=== PATIENT | male | born 1965 | race Caucasian/White ===

== ENCOUNTER → 2016-04-07 | Outpatient (CLI) | payer OTHER ==
[~2016-04-07] MED LIST: /BACL20TA PO; ALBU17IN2 INH; BACL10TA PO; BACL10TA2 PO; HYDR12.55 PO; LISI5TAB PO; NAPR500T PO; NICO21PAT TD; NORV5TAB PO; OMEP20CA3 PO; OMEP40CA2 PO; PERC5TAB6 PO; SIMV40TA2 PO; SULF-216 PO; TERB250T64 PO; TYLE325T5 PO; ULTR50TA PO; VIAG100T PO
[2016-04-07 15:48] LABS: MEAN CORPUSCULAR HEMOGLOBIN 28.1 pg (27.0-33.0); MEAN CORPUSCULAR VOLUME 87.9 fl (80.0-96.0); RED CELL DISTRIBUTION WIDTH 13.9 % (11.5-14.5); WHITE BLOOD COUNT 6.4 K/mm3 (4.0-10.0)
[2016-04-07 16:02] LABS: ALBUMIN/GLOBULIN RATIO 1.05 (1.00-1.93); ALKALINE PHOSPHATASE 100 U/L (45-117); ALT/SGPT 61 U/L (12-78); ANION GAP 9 MEQ/L (8-16); AST/SGOT 23 U/L (15-37); BILIRUBIN,TOTAL 0.4 MG/DL (0.2-1.0); BLOOD UREA NITROGEN 13 MG/DL (7-18); CALCIUM LEVEL 9.5 MG/DL (8.5-10.1); CARBON DIOXIDE LEVEL 27 MEQ/L (21-32); CHLORIDE LEVEL 103 MEQ/L (98-107); CREATININE FOR GFR 1.13 MG/DL (0.70-1.30); GLOMERULAR FILTRATION RATE > 60.0 (>60); GLUCOSE, FASTING 92 MG/DL (70-105); POTASSIUM SERUM 4.2 MEQ/L (3.5-5.1); SODIUM LEVEL 139 MEQ/L (136-145); TOTAL PROTEIN 7.8 GM/DL (6.4-8.2)
[2016-04-08 09:48] LABS: CONTROL LINE INT CTR LINE PRESENT; HIV SCRN NEGATIVE (NEGATIVE); HIV SCRN1 NEGATIVE (NEGATIVE)
== END ==
LOC: M LAB 14:18
PROVIDERS: ATTEND Family Medicine
DX: F11.20 Opioid dependence, uncomplicated (principal)

== ENCOUNTER → 2016-06-23 | Outpatient (CLI) | payer OTHER ==
--- NOTE | 2016-06-23 17:02 | REP ---
LEFT WRIST, FOUR VIEWS: HISTORY: Pain. There is no acute fracture or dislocation. The joint spaces are normal in appearance. IMPRESSION: There is no acute fracture or dislocation. Signed by Jessee Parnell MD 06/23/2016 05:05 P
== END ==
LOC: M WUC 15:55
PROVIDERS: ATTEND Physician Assistant
DX: M25.532 Pain in left wrist (principal)

== ENCOUNTER → 2016-11-11 | Outpatient (CLI) | payer OTHER ==
[~2016-11-11] MED LIST changes: +PERC5TAB12 PO; -PERC5TAB6 PO
[2016-11-11 14:02] LABS: MEAN CORPUSCULAR HEMOGLOBIN 29.3 pg (27.0-33.0); MEAN CORPUSCULAR HGB CONC 33.9 g/dl (32.0-36.5); MEAN CORPUSCULAR VOLUME 86.6 fl (80.0-96.0); RED CELL DISTRIBUTION WIDTH 14.5 % (11.5-14.5); WHITE BLOOD COUNT 5.9 K/mm3 (4.0-10.0)
[2016-11-11 14:13] LABS: ALBUMIN 3.3 GM/DL (3.2-5.2); ALBUMIN/GLOBULIN RATIO 0.94 (1.00-1.93); ALKALINE PHOSPHATASE 89 U/L (45-117); ALT/SGPT 55 U/L (12-78); ANION GAP 12 MEQ/L (8-16); AST/SGOT 29 U/L (15-37); BILIRUBIN,TOTAL 0.3 MG/DL (0.2-1.0); BLOOD UREA NITROGEN 17 MG/DL (7-18); CALCIUM LEVEL 8.7 MG/DL (8.5-10.1); CARBON DIOXIDE LEVEL 24 MEQ/L (21-32); CHLORIDE LEVEL 107 MEQ/L (98-107); GLOMERULAR FILTRATION RATE > 60.0 (>56); GLUCOSE, FASTING 119 MG/DL (70-105); POTASSIUM SERUM 3.6 MEQ/L (3.5-5.1); SODIUM LEVEL 143 MEQ/L (136-145); TOTAL PROTEIN 6.8 GM/DL (6.4-8.2)
--- NOTE | 2016-11-11 18:28 | ECGEPIP ---
Stationary ECG Study [facility] Test Date: 2016-11-11 Pat Name: MARIO POLLACK Department: Room: - Gender: M Dog Warden: : 1965 Requested By: Shayne Umanzor Order Number: [id number] Reading MD: Edin Hoskins Measurements Intervals Proctor Rate: 60 P: 21 W[place]: 145 QRS: 40 QRSD: 88 T: 58 QT: 423 QTc: 424 Interpretive Statements Normal sinus rhythm Some delayed anterior R-wave progression Nonspecific T-wave abnormality No significant change since 04/27/2014 Electronically Signed On 11-11-2016 18:27:57 EDT by Edin Hoskins
== END ==
LOC: M LAB 12:23
PROVIDERS: ATTEND Family Medicine
DX: Z13.9 Encounter for screening, unspecified (principal); F11.20 Opioid dependence, uncomplicated

== ENCOUNTER 2017-04-12 04:36 | Emergency (ER) | payer OTHER ==
[2017-04-12] MEDS ORDERED: AMMONIA AROMATIC INHALANT (FLOOR STOCK) As Ordered (04:44)
[2017-04-12] MEDS: NALOXONE INJ 2 MG/2 ML SYRINGE (J2310) IM (05:13)
== END 2017-04-12 07:05 | disposition home or self-care (01) ==
LOC: M ED 04:36
DX: T40.2X1A Poisoning by other opioids, accidental (unintentional), initial encounter (principal); X58.XXXA Exposure to other specified factors, initial encounter; Y92.018 Other place in single-family (private) house as the place of occurrence of the external cause; F11.10 Opioid abuse, uncomplicated; Z79.899 Other long term (current) drug therapy; Z88.8 Allergy status to other drugs, medicaments and biological substances
CPT/HCPCS: J2310

== ENCOUNTER → 2018-05-19 | Outpatient (REF) | payer OTHER ==
[2018-05-19 13:52] LABS: ALBUMIN 3.6 GM/DL (3.2-5.2); ALT/SGPT 85 U/L (12-78); BILIRUBIN,TOTAL 0.2 MG/DL (0.2-1.0); BLOOD UREA NITROGEN 19 MG/DL (7-18); CALCIUM LEVEL 9.1 MG/DL (8.5-10.1); CARBON DIOXIDE LEVEL 22 MEQ/L (21-32); CHLORIDE LEVEL 108 MEQ/L (98-107); GLOMERULAR FILTRATION RATE > 60.0 (>56); GLUCOSE, FASTING 120 MG/DL (70-100); POTASSIUM SERUM 3.7 MEQ/L (3.5-5.1); SODIUM LEVEL 141 MEQ/L (136-145); TOTAL PROTEIN 7.5 GM/DL (6.4-8.2)
== END ==
LOC: M LAB REF 12:34
PROVIDERS: ATTEND Nurse Practitioner Primary Care
DX: I10 Essential (primary) hypertension (principal)

== ENCOUNTER 2019-03-09 20:55 | Emergency (ER) | payer MEDICAID ==
[~2019-03-09] VITALS: Ht 177.8 cm; Wt 83.3 kg
[~2019-03-09 20:55] MED LIST changes: -/BACL20TA PO; +BACL1TAB9 PO; +NICO21DI3 TD; -NICO21PAT TD; +OMEP-172 PO; -OMEP20CA3 PO; -OMEP40CA2 PO; +OMEP40CA97 PO
[2019-03-09 22:25] LABS: BASO % 0.5 % (0.0-1.0); EOS % 0.4 % (0.0-3.0); HEMATOCRIT 44.2 % (42.0-52.0); HEMOGLOBIN 13.2 g/dl (13.5-17.5); LYMPH # 1.7 10^3/uL (1.5-5.0); LYMPH % 19.6 % (24.0-44.0); MEAN CORPUSCULAR HGB CONC 29.9 g/dl (32.0-36.5); MONO # 0.6 10^3/uL (0.0-0.8); MONO % 6.8 % (0.0-5.0); NEUTROPHILS # 6.2 10^3/uL (1.5-8.5); NEUTROPHILS % 72.3 % (36.0-66.0); PLATELET COUNT, AUTOMATED 180 10^3/uL (150-450); RED BLOOD COUNT 5.08 10^6/uL (4.30-6.10); WHITE BLOOD COUNT 8.5 10^3/uL (4.0-10.0)
[2019-03-09 22:51] LABS: ACETAMINOPHEN LEVEL < 2.0 UG/ML (10.0-30.0); ETHYL ALCOHOL (ETHANOL) < 0.003 % (0.000-0.010); SALICYLATE LEVEL 2.6 MG/DL (5.0-30.0)
[2019-03-09 22:57] LABS: ALBUMIN 3.9 GM/DL (3.2-5.2); ALT/SGPT 47 U/L (12-78); BILIRUBIN,DIRECT 0.1 MG/DL (0.0-0.2); BILIRUBIN,TOTAL 0.3 MG/DL (0.2-1.0); BLOOD UREA NITROGEN 20 MG/DL (7-18); CALCIUM LEVEL 9.1 MG/DL (8.5-10.1); CARBON DIOXIDE LEVEL 27 MEQ/L (21-32); CHLORIDE LEVEL 106 MEQ/L (98-107); CK-MB VALUE MASS 2.9 NG/ML (<3.6); CPK CREATINE PHOSPHOKINASE 137 U/L (39-308); CREATININE FOR GFR 1.02 MG/DL (0.70-1.30); GLOMERULAR FILTRATION RATE > 60.0 (>56); GLUCOSE, FASTING 81 MG/DL (70-100); MB/CK RELATIVE INDEX 2.12 (< OR =4); POTASSIUM SERUM 3.7 MEQ/L (3.5-5.1); SODIUM LEVEL 140 MEQ/L (136-145); TOTAL PROTEIN 8.6 GM/DL (6.4-8.2); TROPONIN I < 0.02 NG/ML (< 0.10)
[2019-03-09 23:59] LABS: AMPHETAMINES LEVEL URINE NEGATIVE (NEGATIVE); BARBITURATES URINE NEGATIVE (NEGATIVE); BENZODIAZEPINES URINE NEGATIVE (NEGATIVE); CANNABINOIDS URINE NEGATIVE (NEGATIVE); COCAINE METABOLITE URINE NEGATIVE (NEGATIVE); METHADONE URINE POSITIVE (NEGATIVE); OPIATES URINE NEGATIVE (NEGATIVE); PHENCYCLIDINE URINE NEGATIVE (NEGATIVE)
[2019-03-10 02:15] VITALS: BP_DIAS 74
[2019-03-10 04:03] VITALS: BP_SYST 164
--- NOTE | 2019-03-10 08:17 | REP ---
CT brain: 03/09/2019. Indication: Acute mental status change. Stroke. Comparison: 02/08/2016. Technique: Unenhanced axial CT images of the brain were obtained from skull base to vertex with coronal reconstructions provided. Findings: There is no acute intracranial hemorrhage, acute cortical infarction, mass effect, hydrocephalus or acute calvarial fracture. Mild diffuse volume loss is present. 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 Impression: No acute intracranial process. Electronically Signed by Evelio Joshi DO 03/10/2019 08:09 A
--- NOTE | 2019-03-10 15:05 | ECGEPIP ---
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
== END 2019-03-10 04:05 | disposition home or self-care (01) ==
LOC: M ED 20:55
DX: F11.10 Opioid abuse, uncomplicated (principal); R00.1 Bradycardia, unspecified; Z79.899 Other long term (current) drug therapy; Z88.6 Allergy status to analgesic agent; Z88.8 Allergy status to other drugs, medicaments and biological substances
CPT/HCPCS: 36415; 51701; 70450; 80048; 80076; 80307; 82550; 82553; 84443; 85025; 93005; 93041; 94760; 99285; G0480

== ENCOUNTER 2019-03-16 08:55 | Emergency (ER) | payer MEDICAID ==
[~2019-03-16] VITALS: Ht 180.3 cm; Wt 89.5 kg
== END 2019-03-16 09:25 | disposition left against medical advice (07) ==
LOC: EDBD 08:55 → M ED 08:55
DX: F19.10 Other psychoactive substance abuse, uncomplicated (principal); F11.10 Opioid abuse, uncomplicated; F17.200 Nicotine dependence, unspecified, uncomplicated; K21.9 Gastro-esophageal reflux disease without esophagitis; Z86.19 Personal history of other infectious and parasitic diseases; Z79.899 Other long term (current) drug therapy; Z88.6 Allergy status to analgesic agent; Z88.8 Allergy status to other drugs, medicaments and biological substances

== ENCOUNTER 2019-04-21 21:24 | Inpatient (IN) | payer MEDICAID, OTHER ==
[~2019-04-21] VITALS: Ht 180.3 cm; Wt 88.4 kg
[~2019-04-21 21:24] MED LIST changes: -OMEP-172 PO; +OMEP1CAP73 PO
[2019-04-21] MEDS ORDERED: CETI10CH PO (22:30)
[2019-04-21] MEDS ORDERED: PANT40TA3 PO (22:30)
[2019-04-21] MEDS ORDERED: PROZ20CA11 PO (22:30)
[2019-04-21] MEDS ORDERED: ZYPR15TA PO (22:30)
[2019-04-21] MEDS ORDERED: GABA-843 PO (22:30)
[2019-04-21 22:50] LABS: BASO % 0.2 % (0.0-1.0); HEMATOCRIT 45.8 % (42.0-52.0); HEMOGLOBIN 14.6 g/dl (13.5-17.5); LYMPH # 0.9 10^3/uL (1.5-5.0); LYMPH % 6.9 % (24.0-44.0); MEAN CORPUSCULAR HEMOGLOBIN 26.5 pg (27.0-33.0); MEAN CORPUSCULAR HGB CONC 31.9 g/dl (32.0-36.5); MEAN CORPUSCULAR VOLUME 83.3 fl (80.0-96.0); MONO # 0.4 10^3/uL (0.0-0.8); NEUTROPHILS % 89.2 % (36.0-66.0); PLATELET COUNT, AUTOMATED 229 10^3/uL (150-450); WHITE BLOOD COUNT 12.4 10^3/uL (4.0-10.0)
[2019-04-21] MEDS ORDERED: PROMETHAZINE INJ 25 MG/ML VIAL (J2550) IV ONE (23:15)
[2019-04-21] MEDS ORDERED: ISOVUE-370 76% 100ML VIAL (Q9967) As Ordered ONE (23:17)
[2019-04-21 23:23] LABS: BILIRUBIN,DIRECT 0.1 MG/DL (0.0-0.2); BILIRUBIN,TOTAL 0.3 MG/DL (0.2-1.0); TOTAL PROTEIN 8.4 GM/DL (6.4-8.2)
--- NOTE | 2019-04-22 00:08 | REPVR ---
PROCEDURE INFORMATION: Exam: CT Abdomen And Pelvis With Contrast Exam date and time: 04/21/2019 11:08 PM Age: 53 years old Clinical indication: Abdominal pain; Generalized; Additional info: Abd pain, HX of obstruction TECHNIQUE: Imaging protocol: Computed tomography of the abdomen and pelvis with intravenous contrast. Radiation optimization: All CT scans at this facility use at least one of these dose optimization techniques: automated exposure control; mA and/or kV adjustment per patient size (includes targeted exams where dose is matched to clinical indication); or iterative reconstruction. Contrast material: ISO; Contrast volume: 100 ml; Contrast route: AC; COMPARISON: CT ABD PELVIS W/O FOL BY WIT 06/19/2014 4:54 PM FINDINGS: Lungs: Minimal dependent atelectasis. Liver: The liver attenuation is 64 Hounsfield units and the spleen is 113 Hounsfield units. Gallbladder and bile ducts: There is a gallstone in the gallbladder measuring 18 mm. Pancreas: Normal. No ductal dilation. Spleen: Normal. No splenomegaly. Adrenals: Normal. No mass. Kidneys and ureters: There is a left renal cyst measuring up to 10 mm. Stomach and bowel: See Soft Tissues Finding. Appendix: No evidence of appendicitis. Intraperitoneal space: Unremarkable. No free air. No significant fluid collection. Vasculature: There is mild calcification of the abdominal aorta with extension into the iliac arteries. Lymph nodes: Unremarkable. No enlarged lymph nodes. Bladder: Unremarkable as visualized. Reproductive: Unremarkable as visualized. Bones/joints: Unremarkable. No acute fracture. Soft tissues: Small fat filled umbilical hernia or right periumbilical hernia. There is an adjacent epigastric fat filled ventral wall hernia protruding toward the left and small epigastric fat filled hernias which may be incisional. [id number] small-bowel distention which extends into a right pelvic ventral wall hernia. There are suture lines associated with the distal dilated small bowel which is within the hernia sac. There is distention of the proximal small bowel. There is an apparent point of transition upon re-entry from the hernia although the apparent narrowing is not severe and findings may reflect enteritis involving the distal small bowel or possibly anastomotic stricture which happens to be within the hernia sac. The point of transition is a few cm from the apparent ileocolic anastomosis in the right pelvis. IMPRESSION: 1. Right pelvic ventral wall hernia containing small bowel segments. Some of this has suture lines suggesting an anastomosis. 2. Small bowel obstruction with a point of transition upon re-entry of the small bowel back into the abdomen from the right pelvic ventral wall hernia which is a few cm from an apparent ileal colic anastomosis. Although the transition is at re-entry, findings may reflect anastomotic stricture or enteritis of the distal small bowel. Obstruction related to incarcerated hernia is not excluded. 3. Small fat filled ventral wall hernias which may be incisional. 4. Fatty infiltration of the liver. 5. Cholelithiasis. COMMENT: Consistent with the [place] [employer]'s Incidental Findings Committee white paper (J Am Tamie Radiol 2018): Any incidental cystic renal lesion classified in this report as too small to characterize or simple appearing is likely a benign cyst. No follow-up imaging is recommended for these lesions per consensus recommendations based on imaging criteria. Electronically signed by: Terell Burrell On 04/22/2019 00:07:55 AM
[2019-04-22] MEDS ORDERED: CYCL10TA PO (00:57)
[2019-04-22] MEDS: D5W/0.9% SODIUM CHLORIDE 1,000 ML IV SCH ×2 (01:15→20:32)
[2019-04-22] MEDS ORDERED: CETIRIZINE (ZyrTEC) 10 MG TAB PO PRN (01:15)
[2019-04-22] MEDS ORDERED: PROMETHAZINE INJ 25 MG/ML VIAL (J2550) IV PRN (02:00)
[2019-04-22 02:17] VITALS: BP 170/98
--- NOTE | 2019-04-22 02:28 | HPEPDOC ---
General Date of Admission Apr 22, 2019 at 01:08 Date of Service: Apr 22, 2019 Other Providers Shayne Umanzor Chief Complaint The patient is a 53-year-old male admitted with a reason for visit of Bowel Obstruction. History of Present Illness John is a 53-year-old male with a history of a small bowel obstruction status post exploratory laparotomy with lysis of adhesions/small bowel resection/primary anastomoses done by Dr. Bruno in 2014. He presented to the emergency department this evening complaining of abdominal pain that had started at 8 AM this morning. The only thing that he has eaten all day has been toast at breakfast. The abdominal pain is in the lower quadrants, and mostly on the right of the low abdomen. He describes it as an aching intermittent pain that has progressed over the course of the day. He has had nausea and 3-4 episodes of emesis (which have been small amounts of gastric fluid). He denies diarrhea, but states that he does have chronic constipation. He has had 6 to 7 black, firm stools today. Normally he has one bowel movement daily. He does not believe that he has passed any gas since yesterday. He denies any bright red blood per rectum (he does have a history of hemorrhoids). He denies any difficulty with urination He denies any fevers or chills. He also does have a history of hepatitis C, which has not been treated. Home Medications Scheduled Amlodipine Besylate (Norvasc) 5 Mg Tab, 10 MG PO DAILY, (Reported) Cyclobenzaprine HCl (Cyclobenzaprine HCl) 10 Mg Tablet, 10 PO TID, (Reported) PATIENT UNSURE OF DOSE, UNABLE TO VERIFY UNTIL PHARMACY OPENS Fluoxetine HCl (Prozac) 20 Mg Capsule, 60 MG PO DAILY, (Reported) Gabapentin (Gabapentin) 300 Mg Capsule, 300 MG PO DAILY, (Reported) Olanzapine (Zyprexa) 15 Mg Tablet, 30 MG PO QPM, (Reported) Omeprazole (Omeprazole) 20 Mg Cap, 20 MG PO DAILY, (Reported) Pantoprazole Sodium (Pantoprazole Sodium) 40 Mg Tablet.dr, 40 MG PO DAILY, (Reported) Scheduled PRN Cetirizine HCl (Cetirizine HCl) 10 Mg Tab.chew, 10 MG PO DAILY PRN for allergy symptoms, (Reported) Allergies Coded Allergies: amitriptyline (Verified Allergy, Unknown, anaphylaxis, 03/16/19) NSAIDS (Non-Steroidal Anti-Inflamma (Verified Adverse Reaction, Unknown, kidney dysfuntion, 03/16/19) Past Medical History Medical History Schizophrenia Anxiety and depression Hypertension Heroin/opioid abuse GERD Chronic low back pain Hepatitis C (untreated) Hemorrhoids History small bowel obstruction Surgical History Spine surgery with vertebral and disc replacement (1986) Melanoma excision from back (unknown) done at [place] Exploratory laparotomy with lysis of adhesions, small bowel resection, and primary anastomosis (2014 Dr. Bruno) Family History None Social History Currently incarcerated at [facility] (35 days). History of heroin/opioid abuse, remote history of bath salt use (clean for 35 days). Smokes 1.5 packs of cigarettes per day, 57-ysin-mido smoking history. Denies alcohol use. Denies recent travel. Was previously in the [employer], served in [employer], was never deployed overseas, has been all over the [place]. No pets. A-FIB/CHADSVASC A-FIB History Current/History of A-Fib/PAF?: No Review of Systems Other systems Constitutional: Denies weight loss, waking, fevers, chills, or night sweats Eyes: Denies visual changes, double vision, blurry vision, floaters, or feeling like a curtain pulled down. Ear nose throat: Denies runny nose, epistaxis, sinus pain, tinnitus, sore throat, or diet aphasia Cardiovascular: Denies chest pain, shortness of breath, paroxysmal nocturnal dyspnea, orthopnea, edema, or pain palpitations. Respiratory: Denies cough, sputum production, wheezes, hemoptysis, or shortness of breath Gastrointestinal: Endorses abdominal pain as described above, with chronic constipation, black stools, nausea and 3 episodes of vomiting (small amounts of gastric acid). Endorses obstipation since this morning. Denies difficulty swallowing, loss of appetite, diarrhea, hematemesis, hematochezia, or tenesmus. Musculoskeletal: Denies joint swelling, decreased range of motion, crepitus, or no arthritis Integumentary: Denies pruritus, rashes, or lesions Neuro: Denies any changes to sight/smell/hearing/taste seizures, faint, headaches, paresthesias, anesthesias Psychiatric: Positive for history of schizophrenia as well as depression and anxiety. Denies paranoia, anhedonia, or episodes of flavio Endocrine: Denies diarrhea, increased appetite, tremor, palpitations, constipation, dry skin, polydipsia, polyuria, polyphagia Hematologic: Denies any anemia, purpura, or petechiae Lymphatic: Denies any new lumps or bumps anywhere Physical Examination Other physical findings General: Middle-aged male who appears a little than stated age, in no acute distress, lying in the stretcher in handcuffs. He is accompanied by 2 correctional officers. HEENT: Atraumatic, normocephalic. Mucous membranes are moist. Patient is edentulous. Posterior pharynx is free of erythema or exudate. Mallampati 3. Extraocular eye movements are intact and pupils are equal round and reactive to light Neck: Supple, no masses, no JVD Lungs: Clear to auscultation bilaterally; no wheezes, rhonchi, or rales Heart: Regular rate and rhythm; no murmurs, gallops, or rubs Abdomen: Normoactive bowel sounds, with some tympany to percussion of the left abdomen. No guarding or rigidity is noted. Peristalsis is appreciated on palpa tion of the lower abdomen, especially in the right lower quadrant. There is discomfort/tenderness with palpation of the right and left lower quadrants. Back: No CVA tenderness Extremities: No clubbing, cyanosis, or bilateral lower extremity edema. Integumentary: Fungal infection of the nails of the first 2 digits of the left hand. Multiple tattoos noted. He does have some minor skin irritation from his handcuffs. Neuro: Cranial nerves II through XII grossly intact. Sensation intact throughout. Muscle strength 5 out of 5 bilaterally Psychiatric: Affect is full and mood is appropriate Vital Signs Vital Signs Date Time Temp Pulse Resp B/P (MAP) Pulse Ox O2 Delivery O2 Flow Rate FiO2 04/22/19 01:40 167/93 (117) 04/21/19 21:25 97.6 102 16 95 Room Air Laboratory Data Labs 24H Laboratory Tests 2 04/21/19 22:44: Immature Granulocyte % (Auto) 0.7, Neutrophils (%) (Auto) 89.2H, Lymphocytes (%) (Auto) 6.9L, Monocytes (%) (Auto) 3.0, Eosinophils (%) (Auto) 0.0, Basophils (%) (Auto) 0.2, Neutrophils # (Auto) 11.0H, Lymphocytes # (Auto) 0.9L, Monocytes # (Auto) 0.4, Eosinophils # (Auto) 0.0, Basophils # (Auto) 0.0, Nucleated Red Blood Cells % (auto) 0.0, Total Bilirubin 0.3, Direct Bilirubin 0.1, Aspartate Amino Transf (AST/SGOT) 25, Alanine Aminotransferase (ALT/SGPT) 56, Alkaline Phosphatase 136H, Total Protein 8.4H, Albumin 4.0, Albumin/Globulin Ratio 0.91L, Lipase 97 04/21/19 22:45: POC Glucose (Misc Panel) 220H, POC Sodium (Misc Panel) 138, POC Potassium (Misc Panel) 4.0, POC Chloride (Misc Panel) 104, POC Total CO2 (Misc Panel) 22.0L, POC Blood Urea Nitrogen (Misc Panel 11, POC Ionized Calcium (Misc Panel) 4.5, POC Creatinine (Misc Panel) 0.8, POC Hematocrit (Misc Panel) 47.0 CBC/BMP Laboratory Tests 04/21/19 22:44 Assessment/Plan Assessment: 53-year-old incarcerated male with history of small bowel obstruction status post exploratory laparotomy with lysis of adhesions/small bowel resection/primary anastomoses done in 2014 presenting with a day-long history of abdominal pain. Small bowel obstruction with point of transition upon reentry of the small bowel back into the abdomen from the right pelvic ventral wall hernia noted on CT of the abdomen and pelvis. Plan: 1. Small bowel obstruction. Will keep nothing by mouth except for meds, with normal saline at [address] Sims from surgery consulted, appreciate his help. Will add ciprofloxacin and metronidazole for bacterial translocation. Phenergan for nausea. 2. Hypertension. Continue with amlodipine 3. History of heroin/opioid abuse. Avoid narcotic medications if possible 4. GERD. Continue with omeprazole 5. Schizophrenia. Continue with home Zyprexa 6. Depression and anxiety. Continue with Prozac 7. Allergies. Continue with cetirizine 8. Chronic back pain. Continue with cyclobenzaprine and gabapentin. 9. Hepatitis C, untreated. Would refer to Dr. Wright for outpatient treatment DVT prophylaxis: Heparin Disposition: Inpatient as we expect greater than 2 midnights Plan / VTE VTE Prophylaxis Ordered?: Yes GME ATTESTATION GME ATTESTATION My faculty preceptor for this patient encounter was physically present during the encounter and was fully available. All aspects of the patient interview, examination, medical decision making process, and medical care plan development were reviewed and approved by the faculty preceptor. The faculty preceptor is aware and concurs with the plan as stated in the body of this note and will attest to such by his/her cosignature. YOANDY BELTRE D.O. Apr 22, 2019 02:28
[2019-04-22] MEDS ORDERED: SODIUM CHLORIDE 0.9% 1000ML IV ONE (02:30)
[2019-04-22] MEDS: OLANZapine 5 MG TAB PO SCH ×2 (02:37→18:27)
[2019-04-22] MEDS: CIPROFLOXACIN 400 MG in IV 1 EA IV SCH ×2 (02:46→15:24)
[2019-04-22] MEDS: metroNIDAZOLE 500 MG in IV 1 EA IV SCH ×3 (04:09→20:32)
[2019-04-22 06:00] VITALS: BP 168/92
[2019-04-22] MEDS: FLUoxetine 20 MG CAP PO SCH (08:21)
[2019-04-22] MEDS: PANTOPRAZOLE 40MG TAB (PROTONIX) PO SCH (08:22)
[2019-04-22] MEDS: amLODIPine 5 MG TAB PO SCH (08:22)
[2019-04-22] MEDS: HEPARIN SOD (PORCINE) 5000 UNITS/ML VIAL (J1644 PER 1000UNITS) SC SCH ×2 (08:22→20:32)
[2019-04-22] MEDS: GABAPENTIN 300 MG CAP PO SCH (08:23)
[2019-04-22] MEDS ORDERED: DICY20TA11 PO (08:39)
[2019-04-22] MEDS ORDERED: OMEPRAZOLE 20 MG CAP PO SCH (09:00)
--- NOTE | 2019-04-22 11:28 | REP ---
Clinical: Small bowel obstruction. Technique: Two supine views of the abdomen and pelvis. Findings: Distended air-filled loops of small bowel measure approximately 5 cm diameter and consistent with obstruction. Fecal stasis within normal / collapsed large bowel noted. No obvious free air. No organomegaly. No abnormal calcifications. Skeletal structures are intact. Impression: Findings compatible with small bowel obstruction. Electronically Signed by Dago Lucio MD 04/22/2019 11:20 A
--- NOTE | 2019-04-22 13:41 | IPNPDOC ---
Subjective Date Seen The patient was seen on 04/22/19. Subjective Chief Complaint/HPI No ngt present. Denies any n/v, BMs nor flatus. Guards x 2 at bedside Objective Physical Examination General Exam: Positive: Alert, No Acute Distress Eye Exam: Positive: PERRLA, Conjunctiva & lids normal, EOMI; Negative: Sclera icteric ENT Exam: Positive: Atraumatic, Mucous membr. moist/pink, Pharynx Normal Neck Exam: Positive: Supple; Negative: JVD, thyromegaly Chest Exam: Positive: Clear to auscultation, Normal air movement Heart Exam: Positive: Rate Normal, Regular Rhythm, Normal S1, Normal S2; Negative: Murmurs, Rubs Telemetry: Positive: No significant arrhythmia Abdomen Exam: Positive: Soft, Other (Bs absent); Negative: Tenderness, Hepatospenomegaly Male Exam: Positive: Normal Genital Exam Extremity Exam: Positive: Normal pulses, Other (Leg shackles in place); Negative: Clubbing, Cyanosis, Edema Skin Exam: Positive: Nl turgor and temperature; Negative: Rash, Breakdown Neuro Exam: Positive: Normal Speech Psych Exam: Positive: Mental status NL, Mood NL, Oriented x 3 Assessment /Plan Assessment # distal SBO - npo status - repeat KUB shows SBO - D/w Dr. Sims - ? need for empiric abx # HTN - continue norvasc Plan/VTE VTE Prophylaxis Ordered?: Yes (hep sq) VTE Exclusion Mechanical Proph: N/A:VTE Prophy Ordered VTE Exclusion Pharmacological: N/A:VTE Prophy Ordered VS, I&O, 24H, Fishbone Vital Signs/I&O Vital Signs Date Time Temp Pulse Resp B/P (MAP) Pulse Ox O2 Delivery O2 Flow Rate FiO2 04/22/19 08:22 168/92 04/22/19 06:00 97.4 78 18 97 04/22/19 02:05 Room Air I&O- Last 24 Hours up to 6 AM 04/22/19 06:00 Intake Total 60 ml Output Total 600 ml Balance -540 ml Laboratory Data 24H LABS Laboratory Tests 2 04/21/19 22:44: Immature Granulocyte % (Auto) 0.7, Neutrophils (%) (Auto) 89.2H, Lymphocytes (%) (Auto) 6.9L, Monocytes (%) (Auto) 3.0, Eosinophils (%) (Auto) 0.0, Basophils (%) (Auto) 0.2, Neutrophils # (Auto) 11.0H, Lymphocytes # (Auto) 0.9L, Monocytes # (Auto) 0.4, Eosinophils # (Auto) 0.0, Basophils # (Auto) 0.0, Nucleated Red Blood Cells % (auto) 0.0, Total Bilirubin 0.3, Direct Bilirubin 0.1, Aspartate Amino Transf (AST/SGOT) 25, Alanine Aminotransferase (ALT/SGPT) 56, Alkaline Phosphatase 136H, Total Protein 8.4H, Albumin 4.0, Albumin/Globulin Ratio 0.91L, Lipase 97 04/21/19 22:45: POC Glucose (Misc Panel) 220H, POC Sodium (Misc Panel) 138, POC Potassium (Misc Panel) 4.0, POC Chloride (Misc Panel) 104, POC Total CO2 (Misc Panel) 22.0L, POC Blood Urea Nitrogen (Misc Panel 11, POC Ionized Calcium (Misc Panel) 4.5, POC Creatinine (Misc Panel) 0.8, POC Hematocrit (Misc Panel) 47.0 CBC/BMP Laboratory Tests 04/21/19 22:44 MDAISON ARNDT MD Apr 22, 2019 13:41
[2019-04-22 14:00] VITALS: BP 143/82
[2019-04-22 22:00] VITALS: BP 136/88
[2019-04-23] MEDS: D5W/0.9% SODIUM CHLORIDE 1,000 ML IV SCH (02:15)
[2019-04-23] MEDS: CIPROFLOXACIN 400 MG in IV 1 EA IV SCH (03:28)
[2019-04-23] MEDS: metroNIDAZOLE 500 MG in IV 1 EA IV SCH (04:47)
[2019-04-23 06:00] VITALS: BP 140/88
[2019-04-23 06:18] LABS: HEMATOCRIT 41.4 % (42.0-52.0); HEMOGLOBIN 13.1 g/dl (13.5-17.5); MEAN CORPUSCULAR HEMOGLOBIN 26.8 pg (27.0-33.0); MEAN CORPUSCULAR HGB CONC 31.6 g/dl (32.0-36.5); MEAN CORPUSCULAR VOLUME 84.8 fl (80.0-96.0); PLATELET COUNT, AUTOMATED 196 10^3/uL (150-450); RED BLOOD COUNT 4.88 10^6/uL (4.30-6.10)
[2019-04-23 06:38] LABS: BLOOD UREA NITROGEN 8 MG/DL (7-18); CALCIUM LEVEL 8.4 MG/DL (8.5-10.1); CARBON DIOXIDE LEVEL 24 MEQ/L (21-32); CHLORIDE LEVEL 111 MEQ/L (98-107); CREATININE FOR GFR 0.88 MG/DL (0.70-1.30); GLOMERULAR FILTRATION RATE > 60.0 (>56); GLUCOSE, FASTING 103 MG/DL (70-100); MAGNESIUM LEVEL 2.2 MG/DL (1.8-2.4); POTASSIUM SERUM 3.4 MEQ/L (3.5-5.1); SODIUM LEVEL 143 MEQ/L (136-145)
[2019-04-23] MEDS: HEPARIN SOD (PORCINE) 5000 UNITS/ML VIAL (J1644 PER 1000UNITS) SC SCH (08:31)
[2019-04-23] MEDS: FLUoxetine 20 MG CAP PO SCH (08:31)
[2019-04-23 08:32] VITALS: BP 140/88
[2019-04-23] MEDS: amLODIPine 5 MG TAB PO SCH (08:32)
[2019-04-23] MEDS: PANTOPRAZOLE 40MG TAB (PROTONIX) PO SCH (08:32)
[2019-04-23] MEDS: GABAPENTIN 300 MG CAP PO SCH (08:32)
[2019-04-23] MEDS ORDERED: POTASSIUM CHLORIDE 10 MEQ SR TABLET PO ONE (10:00)
--- NOTE | 2019-04-23 12:37 | IPNPDOC ---
Subjective Date Seen The patient was seen on 04/23/19. Subjective Chief Complaint/HPI tolerating diet, passing flatus, no bm yet Objective Physical Examination General Exam: Positive: Alert, No Acute Distress Eye Exam: Positive: PERRLA, Conjunctiva & lids normal, EOMI; Negative: Sclera icteric ENT Exam: Positive: Atraumatic, Mucous membr. moist/pink, Pharynx Normal Neck Exam: Positive: Supple; Negative: JVD, thyromegaly Chest Exam: Positive: Clear to auscultation, Normal air movement Heart Exam: Positive: Rate Normal, Regular Rhythm, Normal S1, Normal S2; Negative: Murmurs, Rubs Telemetry: Positive: No significant arrhythmia Abdomen Exam: Positive: Normal bowel sounds, Soft; Negative: Tenderness, Hepatospenomegaly Male Exam: Positive: Normal Genital Exam Extremity Exam: Positive: Normal pulses, Other (Leg shackles in place); Negative: Clubbing, Cyanosis, Edema Skin Exam: Positive: Nl turgor and temperature; Negative: Rash, Breakdown Neuro Exam: Positive: Normal Speech Psych Exam: Positive: Mental status NL, Mood NL, Oriented x 3 Assessment /Plan Assessment # Distal SBO resolved - stop fluids, and abx - advance diet if tolerates will discharge today # HTN - continue norvasc Plan/VTE VTE Prophylaxis Ordered?: Yes (hep sq) VTE Exclusion Mechanical Proph: N/A:VTE Prophy Ordered VTE Exclusion Pharmacological: N/A:VTE Prophy Ordered VS, I&O, 24H, Fishbone Vital Signs/I&O Vital Signs Date Time Temp Pulse Resp B/P (MAP) Pulse Ox O2 Delivery O2 Flow Rate FiO2 04/23/19 08:32 140/88 04/23/19 06:00 98.3 80 19 97 04/22/19 22:00 Room Air I&O- Last 24 Hours up to 6 AM 04/23/19 06:00 Intake Total 1830 ml Output Total 2600 ml Balance -770 ml Laboratory Data 24H LABS Laboratory Tests 2 04/23/19 05:24: Nucleated Red Blood Cells % (auto) 0.0, Anion Gap 8, Glomerular Filtration Rate > 60.0, Calcium Level 8.4L, Magnesium Level 2.2 CBC/BMP Laboratory Tests 04/23/19 05:24 MADISON ARNDT MD Apr 23, 2019 12:37
[2019-04-23 14:00] VITALS: BP 144/82
--- NOTE | 2019-04-23 17:21 | CR ---
DATE OF CONSULTATION: 04/22/2019 REASON FOR CONSULTATION: Ventral hernia with a possible bowel obstruction. HISTORY OF PRESENT ILLNESS: The patient is a 53-year-old man who is currently a resident of the [facility]. He presented to the emergency department at about 9:30 in the evening on 04/21/2019 complaining of abdominal pain. He reported that the abdominal discomfort had started in the morning on the 04/21/2019. It persisted during the course of the day. He noted some abdominal distension. He had been unable to eat and noted some nausea and several episodes of emesis. He denied any diarrhea, but reported some fairly chronic symptoms of constipation. In the emergency department, he was evaluated with some basic blood tests and had a CT scan of the abdomen and pelvis obtained. The CT scan revealed evidence for prior surgery, with intestinal mario in the lower abdomen. There was an incisional hernia in the lower midline of the abdomen, protruding primarily to the right. The hernia contained actually a portion of the small and large bowel including the anastomosis between them. There was a suggestion of a transition in luminal diameter of the small bowel where it passed into the hernia. There was no evidence of free air or free fluid. He was admitted by the hospitalist because of a cohort of other medical illnesses and I am now consulted to evaluate the patient. The patient's history is significant for an exploratory laparotomy by Dr. Bruno five years ago for a small bowel perforation of unclear etiology. He had undergone resection of a portion of the small bowel with anastomosis. The patient reports he has had a protrusion in the lower part of his abdomen and this seems to suggest he has known about a prior hernia, but then says he is not aware of a hernia. He did, at one point, say that he was supposed to have some mesh, which suggests that this had been discussed previously, but he denies it. Medications at time of admission include: - amlodipine - cetirizine - dicyclomine - fluoxetine - gabapentin - olanzapine - omeprazole - pantoprazole ALLERGIES: Are reported to NONSTEROIDALS and AMITRIPTYLINE. SURGICAL HISTORY: Significant for: 1. His 2014 exploratory laparotomy for a bowel resection. His appendix was apparently removed at the same time. 2. He also has a history of excision of a melanoma some years ago. 3. He also reports having spine surgery back in 1986. MEDICAL HISTORY: Significant for: 1. Hypertension. 2. He has back pain. 3. He has a history of substance abuse. 4. He also carries a history of schizophrenia. 5. History of hepatitis C, which reportedly has not been treated. FAMILY HISTORY: Noncontributory. SOCIAL HISTORY: He is currently incarcerated at [facility]. He smokes cigarettes regularly. Does have a history of opioid abuse. REVIEW OF SYSTEMS: Shows no history of heart or lung disease. He denies any dysuria, hematuria. He has had no melena or hematochezia. He denies any bone or joint issues. He does have a history of some depression and anxiety. He has no history of deep venous thrombosis (DVT) or pulmonary embolus. PHYSICAL EXAMINATION: Reveals a man in an orange jumpsuit lying quietly on the hospital bed. He is alert and appears comfortable. Sclerae are anicteric. Mucous membranes are moist. Neck is supple. Heart exam shows a regular rhythm and is not tachycardiac. Lungs are clear. Abdominal exam shows a low midline scar extending to slightly above the umbilicus. He has bowel sounds present in all four quadrants. He has an obvious palpable low midline hernia that seems to protrude to the right of the midline. There is some mild tenderness on palpation of this area, but it does seem that I can reduce his hernia contents into the abdomen. The lower extremities are without edema and he has intact peripheral pulses. LABORATORY STUDIES: Include a complete blood count (CBC), showing a white count of 12, hemoglobin 15, hematocrit 46 and platelet count of 229,000. Differential count shows 89% neutrophils, 7% lymphocytes and 3% monocytes. Chemistry profile shows normal electrolytes, with a BUN of 11, creatinine 0.8 and a glucose of 220. His liver function tests are normal with the exception of a slight elevation of his alkaline phosphatase to 136. His CT scan of the abdomen and pelvis I reviewed personally. He certainly has a hernia in the lower abdomen along his midline scar. There is small bowel, including an anastomosis, that protrudes through this defect and extends to the right in the subcutaneous space. There is some fullness of the small bowel just proximal to this hernia, though the most proximal small bowel in the abdomen does not seem distended. There is no free air and no free fluid. IMPRESSION: 1. Ventral incisional hernia containing small bowel. 2. Partial small-bowel obstruction secondary to hernia. 3. History of schizophrenia. 4. History of narcotic abuse. 5. Hypertension. 6. Gastroesophageal reflux. 7. History of hepatitis C. RECOMMENDATIONS: At this point, the patient appears quite comfortable and has had no pain medications. The hernia is soft and I believe that I was able to completely reduce this on his physical exam. I believe it would be reasonable to start him on some clear liquids and I will take the liberty of doing so. I would anticipate that his symptoms will remit and we will be able to discharge him back to his current residence. I advised him that at some point, repair of his hernia would be prudent to prevent future problems with this. He certainly does not have evidence for a degree of obstruction that would require urgent intervention currently. If he tolerates the clear liquids today, an advancement to a regular diet and a discharge soon thereafter would be appropriate. edited: 04/24/2019 [id number] [place]ILLE
[2019-04-23] MEDS ORDERED: OLANZapine 10 MG TAB PO SCH (18:00)
--- NOTE | 2019-04-24 18:14 | IPN ---
DATE: 04/23/2019 HISTORY: The patient is a 53-year-old man who was admitted in the market development manager of 04/22/[address] Suggs of the hospitalist service. He was admitted for abdominal pain with a CT scan showing an incisional hernia containing small bowel in the lower abdomen with a suggestion of some degree of obstruction. The patient was started on some clear liquids yesterday, which he tolerated well and hospitalist provider started him on full liquids earlier today. Vital signs show that he has been afebrile with a pulse in the 70s and a good blood pressure. Intake and output show that yesterday he had 870 mL in with 2600 mL of urine recorded out. PHYSICAL EXAMINATION: The patient is lying quietly on the hospital bed and denies any abdominal pain. The abdominal exam shows the abdomen to be flat and soft. He has bowel sounds present. There is a loop of bowel palpable in his low right lower quadrant hernia, which is soft and squishy and reduces into the abdomen with gentle palpation. IMPRESSION: The patient has a soft and reducible hernia containing bowel. He has no signs of obstruction at this time. PLAN: I have advanced him to a regular diet. I believe it would be reasonable for him to be discharged if his other medical issues are all stable. He can follow up on an outpatient basis to consider having his hernia repaired.
--- NOTE | 2019-04-24 19:06 | DSES ---
DATE OF ADMISSION: 04/22/2019 DATE OF DISCHARGE: 04/23/2019 DISCHARGE DIAGNOSIS: Distal small bowel obstruction, resolved. PROCEDURES PERFORMED DURING THIS HOSPITALIZATION: None. CONSULTANTS ON THE CASE: Dr. Sims. DISPOSITION: Patient is discharged back to the [facility]. DISCHARGE INSTRUCTIONS: Patient is instructed to follow up with the [facility] to have an outpatient surgical followup for evaluation and repair of his ventral hernia. CONDITION AT DISCHARGE: Stable. RELEVANT IMAGING STUDIES DONE DURING THIS HOSPITALIZATION: 1. A CT of the abdomen and pelvis. Please reference full report for details. A brief summary indicated that the patient had a small bowel obstruction. Please reference full report for details. 2. Abdominal x-ray, which showed small bowel obstruction. DISCHARGE MEDICATIONS: - Norvasc 10 mg daily - cetirizine 10 mg daily as needed for allergy symptoms - dicyclomine 20 mg three times a day - fluoxetine 60 mg daily- - gabapentin 300 mg daily - olanzapine 30 mg in the evening - Protonix 40 mg by mouth daily PERTINENT LABORATORIES: White blood cell count on admission was 12.4, at discharge it is 5, hemoglobin is 14.6, hematocrit 45.8, platelet count 229,000. Sodium 142, potassium 3.4, chloride 111, bicarbonate 24, anion gap 8, creatinine 0.88, BUN 8, glucose 103, calcium 8.4, magnesium is 2.2. Lipase was 97. HOSPITAL COURSE: Mr. Garcia is a 53-year-old gentleman who presented to the hospital with abdominal pain from the local long term. CT of the abdomen and pelvis done in the emergency room (ER) department was consistent with small bowel obstruction. He was admitted to the hospitalist service. Because he was not having any nausea or vomiting, nasogastric (NG) tube was not placed. He was admitted to the general medical floor. Dr. Sims was consulted, found that the patient's symptoms had improved. He was started on a diet, which he tolerated. This was advanced over the next 24 hours and patient was subsequently discharged home in stable condition.
== END 2019-04-23 15:52 | DRG 247 ==
LOC: M ED 21:24 → M ED INP 04-22 01:08 → ENRESERVDT 04-22 01:57 → ENRESERVTM 04-22 01:57 → M MSPAV 04-22 02:17
PROVIDERS: ADMIT Internal Medicine; ATTEND Internal Medicine
DX: K56.609 Unspecified intestinal obstruction, unspecified as to partial versus complete obstruction (principal); F20.9 Schizophrenia, unspecified; I10 Essential (primary) hypertension; K59.09 Other constipation; K64.9 Unspecified hemorrhoids; B19.20 Unspecified viral hepatitis C without hepatic coma; Z79.899 Other long term (current) drug therapy; Z88.8 Allergy status to other drugs, medicaments and biological substances; F41.9 Anxiety disorder, unspecified; F32.9 Major depressive disorder, single episode, unspecified; F11.10 Opioid abuse, uncomplicated; K21.9 Gastro-esophageal reflux disease without esophagitis; G89.29 Other chronic pain; M54.5 Low back pain; Z98.1 Arthrodesis status; Z85.828 Personal history of other malignant neoplasm of skin; F17.210 Nicotine dependence, cigarettes, uncomplicated; K43.9 Ventral hernia without obstruction or gangrene

== ENCOUNTER → 2019-06-14 | Outpatient (REF) ==
[~2019-06-14] MED LIST changes: +CETI10CH PO; +CYCL10TA PO; +DICY20TA11 PO; +GABA-843 PO; +PANT40TA3 PO; +PROZ20CA11 PO; +ZYPR15TA PO
== END ==
LOC: M LAB 08:37